=== PATIENT | male | born 1955 | race Two or more races ===

== ENCOUNTER 2018-07-01 18:52 | Inpatient (IN) | payer OTHER ==
[~2018-07-01] VITALS: Ht 154.9 cm; Wt 53.1 kg
[2018-07-01] MEDS ORDERED: TAMS-12 PO (19:41)
[2018-07-01] MEDS ORDERED: PHEN-894 PO (19:41)
[2018-07-01] MEDS ORDERED: FINA5TAB4 PO (19:41)
[2018-07-01 20:00] VITALS: BP 140/83
[2018-07-01] MEDS ORDERED: ONDANSETRON HCL/PF 4 MG/2 ML VIAL IVP PRN (20:30)
[2018-07-01] MEDS ORDERED: HYDROCODONE/APAP 5/325MG 1 EACH TABLET PO PRN (20:30)
[2018-07-01] MEDS ORDERED: MAGNESIUM HYDROXIDE 30 ML UDC PO PRN (20:30)
[2018-07-01] MEDS ORDERED: Z GUARD REMEDY 2 OZ OINT TP PRN (20:30)
[2018-07-01] MEDS ORDERED: ACETAMINOPHEN 325 MG TABLET PO PRN (20:30)
[2018-07-01] MEDS ORDERED: ZOLPIDEM TARTRATE 5 MG TABLET PO PRN (20:30)
[2018-07-01] MEDS ORDERED: MAG HYDROX/AL HYDROX/SIMETH 30 ML UDC PO PRN (20:30)
[2018-07-01] MEDS: IV NS 0.9% 1,000 ML IV PRN (20:50)
[2018-07-01] MEDS: CEFTRIAXONE 1 G in IV D5W 50 ML IV SCH (20:50)
[2018-07-01] MEDS: TAMSULOSIN 0.4 MG CAP.SR.24H PO SCH (21:37)
--- NOTE | 2018-07-02 06:42 | NUR ---
MS RN NOTES AWAKE & RESPONSIVE. NOT IN ANY DISTRESS. NO SOB NOTED. DENIES ANY PAIN OR DISCOMFORT AT THIS TIME. WITH IVF INFUSING WELL. WITH F/C DRAINING YELLOWISH OUTPUT MODERATE IN AMOUNT. MONITORED ACCORDINGLY. CALL LIGHT WITHIN REACH. BED IN LOWEST POSITION. SR UP X 2 FOR SAFETY. WILL ENDORSE TO NEXT SHIFT.
[2018-07-02 07:13] LABS: BASOPHILS % (AUTO) 0.1 % (0.0-2.0); EOSINOPHILS % (AUTO) 0.2 % (0.0-6.0); HEMATOCRIT 38 % (39-51); HEMOGLOBIN 13.1 g/dL (13.5-17.5); LYMPHOCYTES # (AUTO) 1.1 /CMM (0.8-4.8); LYMPHOCYTES % (AUTO) 7.9 % (20.0-44.0); MEAN CORPUSCULAR HGB CONC 35 g/dl (31.0-36.0); MEAN CORPUSCULAR VOLUME 92 fL (80-96); MONOCYTES # (AUTO) 1.4 /CMM (0.1-1.30); MONOCYTES % (AUTO) 9.6 % (2.0-12.0); NEUTROPHILS # (AUTO) 11.8 /CMM (1.8-8.9); NEUTROPHILS % (AUTO) 82.2 % (43.0-81.0); PLATELET COUNT (AUTO) 168 /CMM (150-450); RED BLOOD CELL COUNT(AUTO) 4.08 MIL/uL (4.5-6.0); WHITE BLOOD COUNT (AUTO) 14.4 K/uL (4.3-11.0)
--- NOTE | 2018-07-02 07:31 | NUR ---
MS/RN Patient received Patient received from finish sander. A/O X4, Turkish speaking but able to understand limited englisg. Ornelas catheter draining blood tinged urine. IVF fluids infusing at 75ml/hr, no signs of infiltration seen. Denies any pain or discomfort. Call light within reach, will continue to monitor and ensure safety.
[2018-07-02 07:33] LABS: CALCIUM, SERUM 8.1 mg/dL (8.5-10.1); CREATININE 0.8 mg/dL (0.6-1.3); MAGNESIUM 1.8 mg/dL (1.8-2.4); PHOSPHORUS 2.2 mg/dL (2.5-4.9); POTASSIUM 3.4 mmol/L (3.5-5.1)
[2018-07-02 07:44] LABS: THYROID STIMULATING HORMONE 3.194 uIU/mL (0.358-3.74)
[2018-07-02 08:00] VITALS: BP 124/69
[2018-07-02] MEDS: FINASTERIDE (5 MG) 5 MG TABLET PO SCH (08:19)
--- NOTE | 2018-07-02 09:00 | NUR ---
MS/RN Medications Morning medications administered as ordered.
[2018-07-02] MEDS: IV NS 0.9% 1,000 ML IV PRN ×2 (11:04→17:21)
[2018-07-02] MEDS ORDERED: POTASSIUM CHLORIDE 20 MEQ TAB.PRT.SR PO SCH (11:30)
[2018-07-02] MEDS ORDERED: K PHOS NEUTRAL 250 MG TABLET PO ONE (12:00)
--- NOTE | 2018-07-02 13:35 | NUR ---
MS/RN Evy Ornelas catheter continues to drain pinkish tinged urine, no blood clots seem. Denies pain or discomfort. All needs addressed, will continue to monitor and ensure safety.
--- NOTE | 2018-07-02 16:00 | NUR ---
MS/RN S/B Leo Fan LADIES LOCKER ROOM ATTENDANT Seen by LADIES LOCKER ROOM ATTENDANT - burnham catheter to remain in place at this time. Urine collected and sent to lab for UA and culture.
[2018-07-02 16:05] VITALS: BP 126/72
[2018-07-02 17:37] LABS: APPEARANCE,URINE TURBID (CLEAR); BILIRUBIN,URINE NEGATIVE (NEGATIVE); BLOOD, URINE 3+ Ery/uL (NEGATIVE); COLOR,URINE YELLOW (YELLOW); KETONES,URINE NEGATIVE (NEGATIVE); LEUKOCYTE ESTERASE ,URINE 1+ (NEGATIVE); NITRITE, URINE POSITIVE (NEGATIVE); PH,URINE 6.5 (5.0-8.0); PROTEIN,URINE 2+ mg/dl (NEGATIVE); UGLUCOSE NEGATIVE (NEGATIVE)
[2018-07-02 17:55] LABS: RBC,URINE TOO NUMEROUS TO COUN /HPF (0-2)
[2018-07-02 17:56] LABS: BACTERIA,URINE Moderate /HPF (None Seen); SQUAMOUS EPITHELIAL CELL,UR Few /HPF (None Seen)
--- NOTE | 2018-07-02 18:45 | NUR ---
MS/RN End note Patient remains in stable condition, all needs addressed, will endorse to night worker.
--- NOTE | 2018-07-02 19:35 | NUR ---
RN OPENING NOTES RECEIVED REPORT FROM GILBERTO RNMEEK. FOUND Pt AWAKE, RESTING IN BED. NO S/S OF ACUTE DISTRESS OR SOB NOTED. Pt IS A/OX4, VERBAL, ABLE TO MAKE NEEDS KNOWN. VELASCO CATHETER IN PLACE, DRAINING WELL, NO BLOOD NOTED IN URINE. IV ACCESS ON RAC #20G, IVF NS @75ML/HR, INFUSING WELL. SAFETY MEASURES IN PLACE. BED LOW, LOCKED, HOB ELEVATED, SIDE RAILS UP, CALL LIGHT AND BEDSIDE TABLE WITHIN REACH. WILL CONTINUE TO MONITOR Pt's CONDITION AND SAFETY THROUGHOUT THE NIGHT.
[2018-07-02 20:00] VITALS: BP 140/76
[2018-07-02 20:06] VITALS: BP 140/76
[2018-07-02] MEDS: CEFTRIAXONE 1 G in IV D5W 50 ML IV SCH (20:38)
[2018-07-02] MEDS: TAMSULOSIN 0.4 MG CAP.SR.24H PO SCH (21:30)
[2018-07-03 06:29] LABS: BASOPHILS % (AUTO) 0.3 % (0.0-2.0); EOSINOPHILS % (AUTO) 0.5 % (0.0-6.0); HEMATOCRIT 36 % (39-51); HEMOGLOBIN 12.5 g/dL (13.5-17.5); LYMPHOCYTES # (AUTO) 1.1 /CMM (0.8-4.8); LYMPHOCYTES % (AUTO) 9.4 % (20.0-44.0); MEAN CORPUSCULAR HGB CONC 34 g/dl (31.0-36.0); MEAN CORPUSCULAR VOLUME 93 fL (80-96); MONOCYTES # (AUTO) 1.3 /CMM (0.1-1.30); MONOCYTES % (AUTO) 10.7 % (2.0-12.0); NEUTROPHILS # (AUTO) 9.5 /CMM (1.8-8.9); NEUTROPHILS % (AUTO) 79.1 % (43.0-81.0); PLATELET COUNT (AUTO) 184 /CMM (150-450); RED BLOOD CELL COUNT(AUTO) 3.93 MIL/uL (4.5-6.0)
[2018-07-03 06:35] LABS: CREATININE 0.8 mg/dL (0.6-1.3); PHOSPHORUS 3.2 mg/dL (2.5-4.9); POTASSIUM 3.3 mmol/L (3.5-5.1)
--- NOTE | 2018-07-03 06:47 | NUR ---
RN CLOSING NOTES NO SIGNIFICANT CHANGES IN Pt's CONDITION. Pt REMAINS STABLE PER BASELINE. NO S/S OF ACUTE DISTRESS OR SOB NOTED DURING THE NIGHT. ALL NEEDS MET AND ATTENDED TO. SAFETY MEASURES IN PLACE. WILL ENDORSE TO DAYSHIFT RN FOR Pt's SIGIFREDO.
--- NOTE | 2018-07-03 07:35 | NUR ---
RN NOTES PATIENT A/OX4, BREATHING EVEN AND UNLABORED, NO SOB NOTED, DENIES PAIN OR DISCOMFORT, VELASCO CATHETER DRAINING YELLOW URINE, ADEQUATE UO. NEEDS ATTENDED AND MET, CALL LIGHT WITHIN REACH, WILL CONTINUE TO MONITOR.
[2018-07-03 08:00] VITALS: BP 128/77
[2018-07-03] MEDS: FINASTERIDE (5 MG) 5 MG TABLET PO SCH (08:28)
[2018-07-03] MEDS ORDERED: POTASSIUM CHLORIDE 20 MEQ TAB.PRT.SR PO ONE ×2 (11:00)
--- NOTE | 2018-07-03 14:16 | NUR ---
RN NOTES RELAYED US PROSTATE RESULT TO MAGUE SETUP TECHNICIAN, PER SETUP TECHNICIAN OK TO REMOVE VELASCO CATH AND WAIT FOR PATIENT TO VOID. VELASCO CATHETER REMOVED AND NOTED PATIENT HAD MILD BLEEDING FROM PENILE AREA. MAGUE SETUP TECHNICIAN MADE AWARE WITH NO NEW ORDER AT THIS TIME. PER SETUP TECHNICIAN, WAIT FOR PATIENT TO VOID, IF NO URINE FOR 6 HOURS, TO REINSERT VELASCO CATHETER.
[2018-07-03] MEDS: IV NS 0.9% 1,000 ML IV PRN (14:18)
[2018-07-03 16:00] VITALS: BP 105/68
--- NOTE | 2018-07-03 18:53 | NUR ---
RN NOTES PATIENT'S VELASCO CATHETER REMOVED THIS AFTERNOON, PATIENT VOIDED IN THE URINAL WITH A TOTAL OF 200CC SINCE 1415. PATIENT DENIES PAIN OR DISCOMFORT. NEEDS ATTENDED AND MET, CALL LIGHT WITHIN REACH, WILL ENDORSE TO SECURITY SYSTEM INSTALLER FOR SIGIFREDO.
--- NOTE | 2018-07-03 19:35 | NUR ---
RN OPENING NOTES RECEIVED REPORT FROM CHRISTIAN MACIAS RN. FOUND Pt AWAKE, SITTING UP IN BED. NO S/S OF ACUTE DISTRESS OR SOB NOTED. Pt IS A/OX4, VERBAL, ABLE TO MAKE NEEDS KNOWN. VELASCO CATHETER REMOVED EARLIER TODAY. PER Pt REPORT SAID HE HAS BEEN VOIDING ON HIS OWN, BUT VERY LITTLE. IV ACCESS ON RAC #20G, IVF NS @75ML/HR. SAFETY MEASURES IN PLACE. BED LOW, LOCKED, HOB ELEVATED, SIDE RAILS UP, CALL LIGHT AND BEDSIDE TABLE WITHIN REACH. WILL CONTINUE TO MONITOR Pt's CONDITION AND SAFETY THROUGHOUT THE NIGHT.
[2018-07-03 20:00] VITALS: BP 136/76
--- NOTE | 2018-07-03 20:00 | NUR ---
RN NOTES IV ACCESS ON RAC WAS ACCIDENTALLY REMOVED. WILL REINSERT NEW IV LNIDA.
--- NOTE | 2018-07-03 20:30 | NUR ---
RN NOTES NEW IV ACCESS STARTED ON LFA #20G.
[2018-07-03 20:35] VITALS: BP 136/76
[2018-07-03] MEDS: CEFTRIAXONE 1 G in IV D5W 50 ML IV SCH (21:24)
[2018-07-03] MEDS: TAMSULOSIN 0.4 MG CAP.SR.24H PO SCH (21:26)
[2018-07-04 07:23] LABS: BASOPHILS % (AUTO) 0.3 % (0.0-2.0); CALCIUM, SERUM 7.5 mg/dL (8.5-10.1); CREATININE 0.8 mg/dL (0.6-1.3); EOSINOPHILS % (AUTO) 0.3 % (0.0-6.0); HEMATOCRIT 37 % (39-51); HEMOGLOBIN 12.9 g/dL (13.5-17.5); LYMPHOCYTES % (AUTO) 8.3 % (20.0-44.0); MEAN CORPUSCULAR HGB CONC 35 g/dl (31.0-36.0); MEAN CORPUSCULAR VOLUME 93 fL (80-96); MONOCYTES # (AUTO) 1.3 /CMM (0.1-1.30); MONOCYTES % (AUTO) 10.5 % (2.0-12.0); NEUTROPHILS # (AUTO) 10.1 /CMM (1.8-8.9); NEUTROPHILS % (AUTO) 80.6 % (43.0-81.0); PLATELET COUNT (AUTO) 230 /CMM (150-450); POTASSIUM 3.5 mmol/L (3.5-5.1); RED BLOOD CELL COUNT(AUTO) 4.01 MIL/uL (4.5-6.0); WHITE BLOOD COUNT (AUTO) 12.5 K/uL (4.3-11.0)
--- NOTE | 2018-07-04 07:30 | NUR ---
MS/RN Patient received Patient received from night warehouse manager. A/O X4, denies pain or discomfort, voiding without any discomfort. Urine noted to be clear, no sediments or clots. Safety measures in place, bed in low setting, call light within reach. Will continue to monitor and ensure safety.
[2018-07-04 07:57] VITALS: BP 144/74
--- NOTE | 2018-07-04 08:00 | NUR ---
MS/RN Low grade fever Patient noted to have low grade fever of 99.1, tylenol 650mg administered. Will recheck temperature in one hour.
[2018-07-04 08:03] VITALS: BP 144/74
[2018-07-04] MEDS: FINASTERIDE (5 MG) 5 MG TABLET PO SCH (08:31)
--- NOTE | 2018-07-04 10:58 | NUR ---
MS/RN Temperature Temperature rechecked, now 98.3
--- NOTE | 2018-07-04 14:00 | NUR ---
MS/RN S/B Leo Fan NP Seen by PHARMACY HELPER - patient to be discharged to home today with prescription to complete antibiotics in pill form for next 14 days.
--- NOTE | 2018-07-04 16:00 | NUR ---
MS/pug mill operator helper Patient discharged to home in stable condition. Heplock and name bands removed, provided with copy of medical record and exit care. Prescription given for bactrim, instructed on possible side effects including diarrhea. Made aware of the importance of filling prescription today as IVAB not ordered to be given until 2029. Patient stated understanding of all of the above. Encouraged to make follow up appointment with primary care doctor for one week and to provide him/her with copy of medical record. Escort to the main lobby by CIARA.
== END 2018-07-04 16:00 | disposition home or self-care (01) | DRG 463 ==
LOC: MEDSG2 18:52
PROVIDERS: ATTEND Nurse Practitioner Acute Care
DX: N39.0 Urinary tract infection, site not specified (principal); B96.20 Unspecified Escherichia coli [E. coli] as the cause of diseases classified elsewhere; D64.9 Anemia, unspecified; N40.1 Benign prostatic hyperplasia with lower urinary tract symptoms; N41.9 Inflammatory disease of prostate, unspecified; R33.8 Other retention of urine; Z16.12 Extended spectrum beta lactamase (ESBL) resistance; R31.9 Hematuria, unspecified; D72.829 Elevated white blood cell count, unspecified
CPT/HCPCS: 36415; 76870-TC; 80048-TC; 80061-TC; 81000-TC; 83735-TC; 84100-TC; 84443-TC; 85025-TC; 87081-TC; 87086-TC; 87186-TC; G0378; J0696; J7030; J7060